=== PATIENT | male | born 1995 | race Caucasian/White ===

== ENCOUNTER 2017-07-31 17:39 | Emergency (ER) | payer OTHER ==
[~2017-07-31] VITALS: Ht 177.8 cm; Wt 88.4 kg
[2017-07-31 17:46] VITALS: Ht 177.8 cm; Wt 88.4 kg
[2017-07-31] MEDS ORDERED: IBUPROFEN 600 MG TAB PO ONE (20:30)
[2017-07-31] MEDS ORDERED: HYDROCODONE/APAP (5/325) TAB PO ONE (20:30)
--- NOTE | 2017-07-31 20:53 | ERD ---
ER Documentation Chief Complaint Chief Complaint RT ELBOW PAIN FELL OFF SKATEBOARD HPI This 22-year-old male comes in for right elbow pain and swelling after he fell onto his elbow on his skateboard. He has had pain since then. 4 hours ago he took 2 200 mg ibuprofen. He states he has a previous fracture of that elbow when she did not find out about until years after the fracture when his doctor did an x-ray. He has no other injuries and did not hit his head or lose consciousness. ROS All systems reviewed and are negative except as per history of present illness. Medications Home Meds Active Scripts Naproxen* (Naproxen*) 500 Mg Tablet, 500 MG PO BID Y for PAIN, #20 TAB Prov:JAYE GARCIA DO 07/31/17 Hydrocodone/Acetaminophen ([place] 5-325 Tablet) 1 Each Tablet, 1 EACH PO Q6 for SEVERE PAIN LEVEL 7-10, #20 TAB Prov:JAYE GARCIA DO 07/31/17 PMhx/Soc Medical and Surgical Hx: pt denies Medical Hx, pt denies Surgical Hx Hx Alcohol Use: No Hx Substance Use: No Hx Tobacco Use: No Smoking Status: Never smoker Physical Exam Vitals Vital Signs Date Time Temp Pulse Resp B/P Pulse Ox O2 Delivery O2 Flow Rate FiO2 07/31/17 17:46 97.2 87 16 142/78 100 Physical Exam Const: [] No obvious distress Head: Atraumatic Eyes: Normal Conjunctiva ENT: Normal External Ears, Nose and Mouth. Neck: Full range of motion..~ No meningismus. Skin: No petechiae or rashes Ext: Right elbow with significant swelling along the posterior aspect of the distal upper arm. Tenderness to palpation along this area of swelling. Patient prefers not to use range of motion in his elbow at all and holes with the other arm. Distal pulses are intact. Neur: Awake and alert and oriented 3, no focal deficits Results 24 hrs Current Medications Medications (Trade) Dose Ordered Sig/Lynn Route PRN Reason Start Time Stop Time Status Last Admin Dose Admin Acetaminophen/ Hydrocodone Bitart ([place] (5/325)) 1 tab ONCE ONCE PO 07/31/17 20:30 07/31/17 20:31 DC 07/31/17 20:47 Ibuprofen (Motrin) 600 mg ONCE ONCE PO 07/31/17 20:30 07/31/17 20:31 DC 07/31/17 20:47 Morphine Sulfate (morphine) 4 mg ONCE STAT IV 07/31/17 21:13 07/31/17 22:31 DC Morphine Sulfate (morphine) 4 mg ONCE STAT IM 07/31/17 22:30 07/31/17 22:32 DC 07/31/17 22:34 Procedures/MDM Intra-articular supracondylar fracture and patient Terell had bone deformity from prior fracture. He was given [place], ibuprofen and then a morphine shot in the emergency room after he had significant pain from x-ray. Pain was controlled. Spoke with Dr. saul who recommends discharge with orthopedic follow- up in a posterior mold splint. This was applied to the patient. Of discharge with [place] naproxen and primary care follow-up for orthopedic referral. Elbow x-ray interpretation: Right elbow with distal humerus having supracondylar nature condylar fracture. Joint effusion. No dislocation ED splint application note: Posterior mold fiberglass splint was applied to the patient's right elbow. He tolerated procedure with no comp occasions perform neurovascular assessment afterwards the patient had motor as well as neurovascular intact. Departure Diagnosis: Primary Impression: Supracondyl fx femur-closed Condition: Stable JAYE GARCIA DO Jul 31, 2017 20:53
[2017-07-31] MEDS ORDERED: morphine 4 MG/ML VIAL IV STA (21:13)
--- NOTE | 2017-07-31 21:23 | RADRPT ---
PROCEDURE: XR right elbow. CLINICAL INDICATION: Trauma due to falling off a skateboard. Right elbow pain. TECHNIQUE: Three views. Frontal, lateral, and oblique. COMPARISON: No prior study is available for comparison. FINDINGS: There is an acute comminuted fracture of the distal humerus with a vertical component in the interco ndylar region and a transverse component in the supracondylar region. There is no displacement of th e fracture fragments. There is no other fracture and there is no dislocation. There is soft tissue swelling overlying the fracture. The articular surfaces are otherwise intact. There is no lytic or blastic lesion. There is no radiopaque foreign body. IMPRESSION: 1. Acute comminuted fracture of the distal humerus with a vertical intercondylar fracture and a tra nsverse supracondylar fracture. 2. Diffuse soft tissue swelling overlying the fracture. 3. Otherwise unremarkable images of the right elbow. RPTAT: QQ .Tommy Larson MD, MD Date Time Electronically viewed and signed by .Tommy Larson MD, on 07/31/2017 21:22 .R/
[2017-07-31] MEDS ORDERED: morphine 4 MG/ML VIAL IM STA (22:30)
[2017-07-31] MEDS ORDERED: HYDR-906 PO (23:08)
[2017-07-31] MEDS ORDERED: NAPR-688 PO (23:08)
[2017-07-31 23:22] VITALS: BP 122/86; PULSE 71; RESP 16; TEMP 98.5
== END 2017-07-31 23:29 | disposition home or self-care (01) ==
LOC: FTE 17:39
DX: S72.451A Displaced supracondylar fracture without intracondylar extension of lower end of right femur, initial encounter for closed fracture (principal); R40.2142 Coma scale, eyes open, spontaneous, at arrival to emergency department; R40.2252 Coma scale, best verbal response, oriented, at arrival to emergency department; R40.2362 Coma scale, best motor response, obeys commands, at arrival to emergency department; V00.131A Fall from skateboard, initial encounter; Y92.9 Unspecified place or not applicable
CPT/HCPCS: 29105; 73080; 96372; J2270; Z7502; Z7610